=== PATIENT | male | born 1975 | race Caucasian/White ===

== ENCOUNTER 2020-02-16 10:26 | Emergency (ER) | payer OTHER ==
[~2020-02-16] VITALS: Ht 188 cm; Wt 145.2 kg
[2020-02-16] MEDS ORDERED: GEODON60 MG PO (10:37)
[2020-02-16] MEDS ORDERED: PRAZOSIN HCL2 MG PO (10:37)
[2020-02-16] MEDS ORDERED: CYMBALTA30 MG PO (10:37)
[2020-02-16] MEDS ORDERED: CLONIDINE HCL0.1 MG PO (10:37)
[2020-02-16] MEDS ORDERED: WELLBUTRIN XL150 MG PO (10:37)
[2020-02-16] MEDS ORDERED: QUETIAPINE FUM100 MG PO (10:38)
[2020-02-16] MEDS ORDERED: VITAMIN D21250 MCG PO (10:38)
[2020-02-16] MEDS ORDERED: LISINOPRIL10 MG PO (10:38)
[2020-02-16] MEDS ORDERED: MONTELUKAST SOD10 MG PO (10:39)
[2020-02-16] MEDS ORDERED: GABAPENTIN400 MG PO (10:39)
[2020-02-16] MEDS ORDERED: HYDROCHLOROTHIA25 MG PO (10:39)
[2020-02-16] MEDS ORDERED: BUPROPION XL150 MG PO (10:39)
[2020-02-16] MEDS ORDERED: ZIPRASIDONE HCL60 MG PO (10:39)
[2020-02-16] MEDS ORDERED: DULOXETINE HCL30 MG PO (10:39)
== END 2020-02-16 15:10 | disposition home or self-care (01) ==
LOC: ED 10:26
DX: J20.9 Acute bronchitis, unspecified (principal); I10 Essential (primary) hypertension; Z87.891 Personal history of nicotine dependence; Z88.0 Allergy status to penicillin; Z79.899 Other long term (current) drug therapy
CPT/HCPCS: 71045; 80053; 81001; 82728; 83605; 83880; 84484; 85025; 85379; 86140; 99285-25

== ENCOUNTER 2020-10-05 06:01 | Inpatient (IN) | payer OTHER ==
[~2020-10-05] VITALS: Ht 188 cm; Wt 154.9 kg
[~2020-10-05 06:01] MED LIST: BUPROPION XL150 MG PO; CLONIDINE HCL0.1 MG PO; CYMBALTA30 MG PO; DULOXETINE HCL30 MG PO; GABAPENTIN400 MG PO; GEODON60 MG PO; HYDROCHLOROTHIA25 MG PO; LISINOPRIL10 MG PO; MONTELUKAST SOD10 MG PO; PRAZOSIN HCL2 MG PO; QUETIAPINE FUM100 MG PO; VITAMIN D21250 MCG PO; WELLBUTRIN XL150 MG PO; ZIPRASIDONE HCL60 MG PO
--- NOTE | 2020-10-05 08:23 | EKG ---
[facility] [address] [place] [address] Signed Sinus tachycardia Possible Left atrial enlargement Borderline ECG No previous ECGs available Confirmed by HIRO NEGRON MD ([id number]) on 10/05/2020 8:22:49 AM Electronically Signed By: HIRO NEGRON MD 10/05/20822 PATIENT NAME: ANTONY MCQUEEN Electrocardiogram DATE OF : 71 PHYSICIAN: HIRO NEGRON MD REPORT #: [id number] REPORT IS CONFIDENTIAL AND NOT TO BE RELEASED WITHOUT AUTHORIZATION
[2020-10-05] MEDS ORDERED: ARNUITY ELLIP100 MCG INH (10:57)
--- NOTE | 2020-10-05 12:45 | NUR ---
Patient arrives to unit via stretcher. Patient able to ambulate to hospital bed independently, SOB noted with activity. Vital signs taken, assessment complete. Medications given (see MAR). Lunch ordered, patient educated on importance of reducing salt intake with meals, as well as reducing fluid intake (patient reports drinking a gallon of crystal light a day). Patient continues to be SOB at rest, HR remains in the 120's during admission. RR in the high 20's to low 30's. Dry cough noted. Denies needs, call light within reach.
--- NOTE | 2020-10-05 14:30 | NUR ---
Patient sitting up in bed watching tv. Admission assessment complete. RR noted to be in the 30's, recommendation made for patient to sit up in chair to ease breathing. Patient compliant and up to chair independently, SOB noted with activity. Legs elevated with pillows underneath. Patient reports "my breathing feels better in the chair." Denies needs, call light within reach.
--- NOTE | 2020-10-05 15:36 | NUR ---
Patient sitting up chair watching tv. RR of 40, patient coached on breathing exercises through window. RR decreases to 18. Denies needs, call light within reach.
--- NOTE | 2020-10-05 16:31 | NUR ---
Patient sitting up in chair watching tv. Harsh coughing observed, HR into the 120's, RR into the high 30's. SpO2 ranges from 94-98% on RA. Patient requests a late dinner, which will be accomodated. Coughing fit subsided, patient able to slow breathing rate. Gives a thumbs up through the window, denies needs. Call light within reach.
--- NOTE | 2020-10-05 18:30 | NUR ---
Patient sitting up in chair, dinner delivered. BG of 150. Will wait to see if patient eats more than 50% of meal prior to potential administration of 10 units of insulin lispro. Patient afebrile, denies pain. RR ranges from 18-24, patient states "I'm slightly SOB but I'm better than I was earlier." Denies needs, call light within reach.
--- NOTE | 2020-10-05 20:15 | NUR ---
SHIFT REPORT RECEIVED FROM MARZENA HUERTA. IN TO CHECK ON PT AT THIS TIME WHO IS RESTING IN BED. ALERT/ORIENTED, DENIES PAIN AT THIS TIME. LUNGS ARE MORE COARSE ON THE RIGHT SIDE WITH EXPIRATORY WHEEZES THROUGHOUT, PT DENIES SOB, HARSH COUGH PRESENT. PT WAS NOTED TO DESAT TO 86-88% WHILE SLEEPING SO 1L O2 VIA NC PLACED ON PT. HR REGULAR, TACHY 110-120'S. BOWEL TONES ACTIVE, DENIES NAUSEA AND ABDOMINAL PAIN. SKIN HAS RASH NOTED TO CHEST AND BLE, DENIES ITCHING. GENERALIZED EDEMA NOTED TO BLE. IV INTACT, PATENT, AND SALINE LOCKED. FRESH ICE WATER PROVIDED. NO FURTHER REQUESTS AT THIS TIME, CALL LIGHT AND BELONGINGS WITHIN REACH.
--- NOTE | 2020-10-05 21:30 | NUR ---
NEW ORDERS RECEIVED, IN TO ADMINISTER SCHEDULED DECARDON. PRN ROBITUSSIN ADMINISTERED AT THIS TIME WELL. PT CONTINUES TO DENY REQUESTS OR COMPLAINTS.
--- NOTE | 2020-10-06 00:30 | NUR ---
PT WOKE EASILY WHEN I ENTERED HIS ROOM, STATES HE HAS BEEN ABLE TO SLEEP OFF AND ON. ASSESSMENT COMPLETED. LUNGS SOUND LESS COARSE, BUT EXPIRATORY WHEEZES REMAIN THROUGHOUT. PT HAD COUGHING FIT WHILE I WAS IN ROOM AND PT REPORTED FEELING SOB AFTERWARD. PT DECLINED NEED FOR BREATHING TREATMENT AT THIS TIME. WILL PLAN ON BRINGING HIM PRN COUGH MEDICINE WHEN DUE AGAIN IN ABOUT AN HOUR. REMAINDER OF ASSESSMENT UNCHANGED. NO FURTHER REQUESTS OR COMPLAINTS AT THIS TIME. CALL LIGHT AND BELONGINGS WITHIN REACH.
--- NOTE | 2020-10-06 02:18 | NUR ---
IN TO CHECK ON PT TO SEE IF HE'D LIKE PRN ROBITUSSIN. PT IS CURRENTLY SLEEPING SOUNDLY, NO APPARENT DISTRESS. RR:16, SPO2:95% ON 1L, HR:117. WILL ALLOW FOR REST AT THIS TIME AND CONTINUE TO MONITOR.
--- NOTE | 2020-10-06 05:00 | NUR ---
IN TO ASSESS PT WHO WAS ASLEEP, BUT AWOKE EASILY WHEN SPOKEN TO. DENIES PAIN. LUNGS SOUND LESS WHEEZY, CONTINUE TO SOUND COARSE ON THE RIGHT SIDE. REMOVED 1L O2 NOW THAT PT IS AWAKE. PT UP TO BATHROOM, STEADY ON FEET, VOIDED 600ML. PRN ROBITUSSIN GIVEN FOR COUGH. BLOOD DRAWN FOR AM LABS ON FIRST ATTEMPT, PT TOLERATED WELL. NO FURTHER REQUESTS AT THIS TIME, CALL LIGHT AND BELONGINGS WITHIN REACH.
--- NOTE | 2020-10-06 07:30 | NUR ---
REPORT RECIEVED. PATIEN IS SITTING UP IN BED, NO DISTRESS. BREAKFAST ORDERED.
--- NOTE | 2020-10-06 07:50 | NUR ---
this rn received report on pt. this rn will be assuming care of pt. aleshia chavez to get pts breakfast order this am.
--- NOTE | 2020-10-06 08:20 | NUR ---
ASSESSMENT DONE. PATIENT IS SHORT OF BREATH WITH EXERTION. HAS OCC PRODUCTIVE COUGH. COUGH MEDICATION GIVEN WELL ROUTINE MEDICATIONS, INCLUDING IV LASIX. TALKED WITH PATIENT ABOUT POC FOR DAY IS UNDERSTANDING. WEIGHT 352.5 LBS.
--- NOTE | 2020-10-06 08:43 | NUR ---
PATIENT SITTING UP IN BED. CALL LIGHT WITHIN REACH. NO FUTHER NEEDS AT THIS TIME.
--- NOTE | 2020-10-06 08:50 | NUR ---
UP TO CHAIR FOR BREAKFAST. INCREASED SHORTNESS OF BREATH WITH EXERTION NOTED. IV ABX INFUSING. HR INCREASE 125-130. DENIES CHEST PAIN.
--- NOTE | 2020-10-06 09:25 | NUR ---
PT PUT FINANCIAL AID DIRECTOR LIGHT STATING THAT HE HAD TO GO TO THE BATHROOM URGENTLY. THIS RN IN PTS ROOM TO HAND PT HIS URINAL. PT STATING "IT HAS NEVER HIT THIS FAST BEFORE" THIS RN EDUCATED PT ABOUT LASIX, THE MED THAT HE HAD JUST RECIEVED FROM [facility]. PT STATED UNDERSTANDING AFTER RECIEVING EXTRA EDUCATION. PT ABLE TO PUT OUT 375ML OF URINE. PT STOOD TO PEE. WHEN PT NEEDED TO PEE AND WAS WAITING FOR THIS RN TO DRESS IN PPE PTS HR JUMPED TO 146 BPM. PT STATED THAT IS THE HIGHEST HE HAS HAD IT GO. THIS RN HAD PT SIT BACK DOWN AFTER STANDING AND TAKE GOOD DEEP BREATHS DUE TO PT TACHYPNEIA AND SPO2 AT 89%. PT SHORT OF BREATH AFTER JUST STANDING TO PEE. PTS SPO2 BACK UP TO 97% ON ROOM AIR AFTER RESTING IN THE CHAIR AND TAKING DEEP BREATHS FOR ABOUT 3MINS
--- NOTE | 2020-10-06 10:00 | NUR ---
THIS RN AND [facility] IN PTS ROOM TO ATTEMPT A NEW IV SITE. PTS CURRENT IV IS IN HIS RIGHT AC AND GETS A DISTAL OCCLUSION WHEN HE BENDS HIS ARM TO EAT. BOTH RN'S UNABLE TO GET A NEW IV SITE, PTS VEINS ARE DEEP.
--- NOTE | 2020-10-06 14:40 | NUR ---
this rn in pts room after checking on pt throught the door, pt stating that he was having more coughing fits this afternoon, this rn in pts room in full ppe to provide pt with robitussin for pts cough. this rn also educated pt to use his IS twice an hour, this rn stated that pt could set a timer on his ipad to remind him when to use the IS pt stated that "i will try" pt states that he needs nothing further at this time.
--- NOTE | 2020-10-06 16:15 | NUR ---
THIS RN POKED HER HEAD INTO THE DOOR TO TALK TO PT AND ASSESS FROM THE DOOR. PT STATED THAT HIS SHORTNESS OF BREATH AT REST IS "EXTREMELY BETTER" THIS RN DID DO A TRIAL WITH THE PT STANDING UP AND WALKING IN PLACE TO SEE IF HIS HR INCREASES. PTS HR WAS SUSTAINED IN THE 120'S BUT DID NOT INCREASE WHEN PT STOOD UP AND WALKED IN PLACE, PTS RESPIRATORY RATE STAYED THE SAME BUT PT DID GET NOTICIABLY SHORT OF BREATH. PTS O2 SATURATION REMAINED IN THE MID 90'S.
--- NOTE | 2020-10-06 16:57 | NUR ---
THIS RN IN PTS ROOM TO GIVE PT HIS EVENING MEDS. PT STATED THAT HIS WORK OF BREATHING IS "EXTREMELY IMPROVED" SINCE YESTERDAY. PT STATES THAT HE DOESN'T FEEL LIKE HE NEEDS ANYTHING THIS EVENING FROM THE NURSE.
--- NOTE | 2020-10-06 18:09 | NUR ---
THIS RN CALLED TO UPDATE HER ABOUT PTS STATUS (SUSTAINED HR'S OF 120-130, DECREASED SHORTNESS OF BREATH, AND GOOD URINE OUTPUT). NO NEW ORDERS.
--- NOTE | 2020-10-06 19:29 | NUR ---
REPORT RECEIVED FROM NIGHTSHIFT RN, WILL CONTINUE PLAN OF CARE.
--- NOTE | 2020-10-06 20:00 | NUR ---
PT CHECKED ON FROM OUTSIDE THE ROOM. PT AWAKE SITTING AT BEDSIDE CHAIR ON ROOM AIR AND USING HIS TABLET.
--- NOTE | 2020-10-06 20:56 | NUR ---
PT AWAKE AND ALERT LAYING SEMI-FOWLERS IN BED NOW. PT REPORTS NO PAIN OR SHORTNESS OF BREATH WHEN ASKED. PT STATES HE HAS BEEN HAVING OCCASIONAL COUGHS. PATIENT MEDICATIONS GIVEN, BLOOD GLUCOSE CHECKED, AND PRN ROBITUSSIN GIVEN (SEE MAR). PT REPORTS NO FURTHER NEEDS AT THIS TIME ASIDE FROM WATER WHICH WAS GIVEN. PT STATES HE PLANS ON GOING TO SLEEP OR TAKING A SHORT NAP. BED IN LOWEST POSITION, CALL LIGHT WITHIN REACH, WILL CONTINUE PLAN OF CARE.
--- NOTE | 2020-10-06 22:15 | NUR ---
PT SLEEPING ON BED IN SEMIFOWLERS POSITION HE STATED HE WOULD. RESPIRATIONS EVEN AND UNLABORED. NO DISTRESS NOTED, PT. LEFT UNDISTURBED. WILL CONTINUE PLAN OF CARE.
--- NOTE | 2020-10-06 23:38 | NUR ---
PT SLEEPING IN BED IN SEMI-FOWLERS. PT ASSESSED. PT REPORTS NO PAIN OR DIFFICULTY BREATHING WHEN ASKED. PT REPORTS NO NEEDS AT THIS TIME. PT IS ON ROOM AIR AND WILL RETURN BACK TO SLEEP. BED IN LOWEST POSITION, CALL LIGHT WITHIN REACH, WILL CONTINUE PLAN OF CARE.
--- NOTE | 2020-10-07 02:00 | NUR ---
PT SLEEPING IN BED, RESPIRATIONS EVEN AND UNLABORED. PT NOT DISTURBED AT THIS TIME.
--- NOTE | 2020-10-07 03:50 | NUR ---
PT LAYING IN BED SEMIFOWLERS SLEEPING. RESPIRATIONS ARE EVEN AND UNLABORED. PT NOT DISTURBED AT THIS TIME AND LEFT SLEEPING. WILL CONTINUE PLAN OF CARE.
--- NOTE | 2020-10-07 08:30 | NUR ---
THIS RN IN PTS ROOM TO GIVE PT HIS MORNING MEDS, DO PTS MORNING ASSESSMENT AND GET PT UP TO THE CHAIR. PT TOLERATED GETTING UP TO THE CHAIR WELL BUT DID HAVE INCREASED SHORTNESS OF BREATH WITH EXERTION. PT ABLE TO RECOVER FROM SHORTNESS OF BREATH AFTER SITTING DOWN IN THE CHAIR FOR ABOUT 3 MINUTES
--- NOTE | 2020-10-07 10:16 | NUR ---
WHILE TRANSFERRING PT TO ROOM 129 DUE TO PTS 2ND NEGATIVE TEST, IN PTS ROOM TO SEE HIM THIS AM.
--- NOTE | 2020-10-07 12:19 | NUR ---
while this rn in pts room getting pts blood sugar pt and this rn discussing about why pt is here. pt stated "i bet my heart failure is like my diabetes, it's just on the edge" this rn educated pt that pt was here for a chf exacerbation which means that he has heart failure even though he was not previously diganosed with it. pt stated understanding that he will have to make some changes. this rn educated pt on diet and exercise balance. pt stated that when he was younger he was able to control his health better, this rn educated pt that as he ages that will change.
--- NOTE | 2020-10-07 12:44 | NUR ---
0815-SWABBED BOTH NARES FOR RAPID COVID TEST.
--- NOTE | 2020-10-07 18:38 | NUR ---
PT ARRIVED FROM CCU. PT ON ROOM AIR, LUNG SOUNDS CLEAR. VSS. PT DIAPHARETIC, BLOOD GLUCOSE CHECKED AND 160. PT DENIES PAIN. WITH EDEMA IN BLE, 1-2+. PT DENIES NEEDS AT THIS TIME.
--- NOTE | 2020-10-07 20:00 | NUR ---
RECEIVED REPORT AT 1900, PT WAS IN BED AWAKE. PT HAD NO NEEDS AT THAT TIME.
--- NOTE | 2020-10-07 22:18 | NUR ---
DIRECTOR GLOBAL INTELLIGENCE ROUNDING NOTE. TRACK GREASER TO ROOM FOR SCHEDULED EARLY CHILDHOOD WORKER AND ACCUCHECK. VS OBTAINED. SEE CHART. PT STATES THAT HE WOULD LIKE TO TAKE A SHOWER, STATES THAT HE IS FEELING MUCH BETTER. TOWELS AND NEW GOWN PLACED OUT FOR PT. PT DECLINES NEED FOR ASSISTANCE WITH SHOWER AT THIS TIME. IV SITE COVERED. ICE WATER REFILLED. PT DENIES FURTHER NEEDS AT THIS TIME. EDUCATION PROVIDED REGARDING CALL LIGHT IN BATHROOM SHOULD NEED ARISE DURING SHOWER. PT STATES UNDERSTANDING.
--- NOTE | 2020-10-07 22:30 | NUR ---
V/S ARE WDL, ALL LOBES ARE CLEAR, PT STATED THAT BILATERAL LOWER LEG EDEMA IS GONE. PT IS AAOX4, PT ALSO SHOWERED. NO NEW CONCERNS WERE NOTED.
--- NOTE | 2020-10-08 01:24 | NUR ---
PT IS SLEEPING AT THIS TIME.
--- NOTE | 2020-10-08 03:17 | NUR ---
PT AT THIS TIME IS SLEEPING. WILL CONTINUE TO MONITOR.
--- NOTE | 2020-10-08 05:54 | NUR ---
PT OVERALL HAD AN UNEVENTFUL NIGHT. PT SLEPT MOST OF THIS SHIFT. PT TACHY AND HAS SOB WITH MILD ACITVITY. NO PERIPHERAL EDEMA NOTED, AT START OF SHIFT ALL LOBES WERE CLEAR, WITH MORNING ASSESSMENT, ALL LOBES HAD EXP. AND INSP. WHEEZING PRESENT. RT WAS CALLED FOR A NEB. COUGH NOW IS PRODUCTIVE. O2 SATS ARE WDL. WILL CONTINUE TO MONITOR.
--- NOTE | 2020-10-08 07:51 | NUR ---
REPORT RECEIVED. PT IN BED AWAKE. DENIES PAIN OR NEEDS. CALL LIGHT IN REACH.
--- NOTE | 2020-10-08 10:12 | NUR ---
PATIENT IN BED, VITAL SIGNS TAKEN AND OUTPUT AND INTAKE REPORTED, PATIENT NEEDED NOTHING ELSE AT THIS MOMENT
--- NOTE | 2020-10-08 11:06 | NUR ---
ASSESSMENT COMPLETED. LUNGS DIM WITH NO CRACKLES HEARD. PT DENIES PAIN OR SOB. DRY COUGH PRESENT. NO CONCERNS. CALL LIGHT IN REACH.
--- NOTE | 2020-10-08 11:18 | NUR ---
AMBULATED PT IN BHANDARI. 1 LAP. PATIENT BACK TO ROOM. HR 117 OXYGEN 94% ON RA AFTER WALK.
--- NOTE | 2020-10-08 12:59 | NUR ---
PATIENT SITTING IN BED EATING LUNCH. ASKING ABOUT ECHO RESULTS. INFORMED PATIENT THEY ARE NOT AVAILIBLE YET.
--- NOTE | 2020-10-08 13:35 | NUR ---
PATIENT AWAKE, IN BED. STATES HE HAS BEEN RECEIVING LITTLE BITS OF DIET INFORMATION FROM STAFF REGARDING A LOW-SODIUM DIET. HE SAID HE READS LABELS BUT PAYS MORE ATTENTION TO CARBS DUE TO HIS HAVING DIABATES. HE DOESN'T EAT DELI MEATS BUT DOES LIKE SOUR CREAM AND ONION POTATO CHIPS. HE DOES NOT LIKE TOMATO SOUP AND IS AWARE THAT MOCK'S SOUP USUALLY HAS THE HIGHEST SODIUM OF ALL SOUPS. I GAVE HIM A PACKET OF INFO AND I REVIEWED READING LABELS LOOKING AT THE %DAILY VALUE FOR SODIUM. CHOOSE FOODS THAT ARE CLOSER TO 5% OF THE DV BECAUSE THESE ARE LOWER IN SODIUM. EXPLAINED SOME LOW-SODIUM DEFINITIONS ON LABELS AND PROVIDED A LOW-SODIUM GROCERY LIST TO GIVE HIM IDEAS OF HOW TO SHOP FOR LOW-SODIUM FOODS. HE SAID HE EATS CANNED CHILI QUITE A BIT, BUT HE WILL NEED TO START MAKING HIS OWN NOW SINCE THERE AREN'T ANY LOW-SODIUM CANNED CHILIS THAT I AM AWARE OF. HE DID MENTION THAT HE WILL NEED TO START TRACKING HIS FLUID INTAKE WELL. HE WAS ALERT THE WHOLE TIME AND HAS GOOD UNDERSTANDING OF THE IMPORTANCE OF EATING LOWER SODIUM FOODS. HE SAID HE PLANS TO SLOWLY CHANGE SOME OF HIS FOOD CHOICES BUT WILL PAY MORE ATTENTION TO THE PORTION SIZE FOR SURE. HE APPRECIATED MY TIME. MY CARD WITH MY NAME AND OFFICE # PROVIDED IN CASE FURTHER QUESTIONS ARISE.
[2020-10-08] MEDS ORDERED: LEVOFLOXACIN750 MG PO (14:32)
[2020-10-08] MEDS ORDERED: CARVEDILOL3.125 MG PO (14:32)
[2020-10-08] MEDS ORDERED: TORSEMIDE20 MG PO (14:33)
[2020-10-08] MEDS ORDERED: SINGULAIR10 MG PO (14:34)
[2020-10-08] MEDS ORDERED: FEXOFENADINE H180 MG PO (14:34)
[2020-10-08] MEDS ORDERED: FLUTICASONE PRO16 GM NAS (14:35)
--- NOTE | 2020-10-08 14:35 | NUR ---
SPOKE WITH PATIENT BRIEFLY IN ROOM. DR SEAY IN TO SEE PATIENT. DID DISCUSS THAT PATIENT NEEDS NEW PCP, HE ASKED DR SEAY IF HE CAN START SEEING HIM. THEY WERE DISCUSSING WHEN I LEFT. NO KNOWN BARRIERS TO HOME OTHER THAN NEEDS PCP TO FOLLOW WITH HIS HAS LEFT THE PRACTICE. CM WILL FOLLOW NEEDED.
[2020-10-08] MEDS ORDERED: SILTUSSIN DM C118 ML PO (14:36)
--- NOTE | 2020-10-08 16:02 | NUR ---
DISCHARGE INSTRUCTIONS PROVIDED. CARDIAC NURSE IN WITH PT NOW BEFORE DISCHARGE. IV DC'D AND WNL.
--- NOTE | 2020-10-08 16:44 | NUR ---
Certified Heart Failure Nurse Notes: PCP: Patient has lost past PCP and will be transferring to Dr Brown's service Echocardiogram completed results pending Admit Wt.: 364 Today's Wt.: 347 lb Admit BNP: 213 Weight monitoring: Scale present in home. Identifies how to weigh daily/ identifies when to notify PCP Symptom management: Addressed monitoring and reporting changes in weight or symptoms utilizing Zones form Diet: Patient acknowledges need for reducing sodium in diet and rational. Encouraged patient to use herb, spices, and vinegars as salt substitutes. Medication routine: Has 7 day pill boxes but will buy new ones while at [facility] picking up medications. Advanced directive: Not discussed at this initial visit Follow-up plans: Patient agrees to follow up call from this service. Will follow echo results to see if he qualifies for cardiac rehab services. Teaching materials that patient has at bedside: [facility] Heart Failure bundle folder-[facility] My Action Plan Living Well with Heart Failure book, Daily weight and symptom monitoring log, Zones magnet Given [facility] contact information
== END 2020-10-08 16:15 | disposition home or self-care (01) | DRG 291 ==
LOC: ED 06:01 → CCU 11:13 → MS 10-07 18:20
PROVIDERS: ADMIT Internal Medicine; ATTEND Internal Medicine
DX: I50.33 Acute on chronic diastolic (congestive) heart failure (principal); J18.9 Pneumonia, unspecified organism; Z68.41 Body mass index [BMI] 40.0-44.9, adult; Z20.828 Contact with and (suspected) exposure to other viral communicable diseases; E66.01 Morbid (severe) obesity due to excess calories; F31.9 Bipolar disorder, unspecified; F41.9 Anxiety disorder, unspecified; R00.0 Tachycardia, unspecified; R09.82 Postnasal drip; R73.03 Prediabetes; E78.5 Hyperlipidemia, unspecified; Z88.0 Allergy status to penicillin; Z87.891 Personal history of nicotine dependence; Z79.51 Long term (current) use of inhaled steroids
CPT/HCPCS: 36415; 71045; 71260; 80048; 80053; 80061; 83036; 83605; 83615; 83735; 83880; 84484; 85025; 85379; 93005; 93010; 93306; 94640; 99285-25; C9803; J1650; J1815; J1940; J1956; J2930; J8540; Q9967; U0003

== ENCOUNTER 2022-05-24 12:01 | Emergency (ER) | payer BC ==
[~2022-05-24] VITALS: Ht 188 cm; Wt 154.7 kg
[~2022-05-24 12:01] MED LIST changes: +ARNUITY ELLIP100 MCG INH; +CARVEDILOL3.125 MG PO; +FEXOFENADINE H180 MG PO; +FLUTICASONE PRO16 GM NAS; +LEVOFLOXACIN750 MG PO; +SILTUSSIN DM C118 ML PO; +SINGULAIR10 MG PO; +TORSEMIDE20 MG PO
[2022-05-24] MEDS ORDERED: PREDNISONE20 MG PO (16:27)
--- NOTE | 2022-05-24 17:42 | EKG ---
[facility] [address] [place] [address] Signed Normal sinus rhythm with sinus arrhythmia Normal ECG When compared with ECG of 05-OCT-2020 06:14, No significant change was found Confirmed by HIRO NEGRON MD ([id number]) on 05/24/2022 5:42:26 PM Electronically Signed By: HIRO NEGRON MD 05/24/221741 PATIENT NAME: RICHARANTONYMUKESH DOWNING Electrocardiogram DATE OF : 71 PHYSICIAN: HIRO NEGRON MD REPORT #: [id number] REPORT IS CONFIDENTIAL AND NOT TO BE RELEASED WITHOUT AUTHORIZATION
== END 2022-05-24 17:20 | disposition home or self-care (01) ==
LOC: ED 12:01
DX: J45.901 Unspecified asthma with (acute) exacerbation (principal); I11.0 Hypertensive heart disease with heart failure; I50.9 Heart failure, unspecified; Z87.891 Personal history of nicotine dependence; Z88.0 Allergy status to penicillin; Z79.899 Other long term (current) drug therapy; Z20.822 Contact with and (suspected) exposure to COVID-19
CPT/HCPCS: 36415; 71045; 80053; 83735; 83880; 84484; 85025; 87502; 93005; 93010; 94640; 99285-25; A9270; J7512; U0003